=== PATIENT | male | born 1995 | race Caucasian/White ===

== ENCOUNTER 2018-04-27 09:04 | Day surgery (SDC) | payer OTHER ==
[2018-04-27] MEDS: LR 1,000 ML IV ×2 (09:27→11:13)
[2018-04-27] MEDS ORDERED: PROPOFOL 200 MG/20 ML VIAL As Ordered ×2 (09:33→10:01)
[2018-04-27] MEDS ORDERED: ROCURONIUM BROMIDE 50 MG/5 ML VIAL As Ordered (09:33)
[2018-04-27] MEDS ORDERED: MIDAZOLAM INJ 2 MG/2 ML VIAL (J2250) As Ordered (09:33)
[2018-04-27] MEDS ORDERED: LIDOCAINE 2% INJ 100 MG/5 ML SDV (FOR ANES.) As Ordered (09:33)
[2018-04-27] MEDS ORDERED: fentaNYL 250 MCG/5 ML INJECTION (J3010) As Ordered (09:33)
[2018-04-27] MEDS: PHENYLEPHRINE 0.5% NASAL SPRAY 15 ML As Ordered (10:05)
[2018-04-27] MEDS: AMPICILLIN SOD/SULBACTAM SOD 3 GM in D5W MINI-BAG PLUS 100 ML IV (10:14)
[2018-04-27] MEDS: dexameTHASONE 4 MG/ML 1ML VIAL (J1100) IV (10:20)
[2018-04-27] MEDS: LIDOCAINE 2% W/ EPINEPHRINE 1.7 ML DENTAL INJ As Ordered (10:20)
[2018-04-27] MEDS ORDERED: GLYCOPYRROLATE INJ 0.2 MG/ML 2 ML VIAL As Ordered ×2 (10:26)
[2018-04-27] MEDS ORDERED: ONDANSETRON 4MG/2ML VIAL (J2405) As Ordered (10:26)
[2018-04-27] MEDS: fentaNYL 100 MCG/2 ML INJECTION (J3010) IV ×3 (11:28→11:41)
[2018-04-27] MEDS ORDERED: fentaNYL 100 MCG/2 ML INJECTION (J3010) As Ordered (11:28)
[2018-04-27] MEDS ORDERED: ONDANSETRON 4MG/2ML VIAL (J2405) IV (11:30)
[2018-04-27] MEDS ORDERED: NORCO, ANEXSIA 5/325MG TABLET (HYDROcodone/ACETAMINOPHEN) As Ordered (12:45)
[2018-04-27] MEDS: NORCO, ANEXSIA 5/325MG TABLET (HYDROcodone/ACETAMINOPHEN) PO (12:50)
== END 2018-04-27 13:30 | disposition home or self-care (01) ==
LOC: M SDC 09:04
DX: K02.9 Dental caries, unspecified (principal); B18.2 Chronic viral hepatitis C; F17.210 Nicotine dependence, cigarettes, uncomplicated; F12.10 Cannabis abuse, uncomplicated
CPT/HCPCS: D7210

== ENCOUNTER 2022-09-11 18:09 | Emergency (ER) | payer OTHER ==
[~2022-09-11] VITALS: Ht 177.8 cm; Wt 86.4 kg
[~2022-09-11 18:09] MED LIST: BUPR8SUB PO; TRAZ150T90 PO
[2022-09-11 18:21] VITALS: BP 120/77
[2022-09-11] MEDS ORDERED: GABA800T4 (18:32)
[2022-09-11] MEDS ORDERED: BUPR8SUB (18:32)
[2022-09-11] MEDS ORDERED: QUET50TA4 (18:32)
[2022-09-11] MEDS ORDERED: QUET100T2 (18:32)
== END 2022-09-11 19:09 | disposition left against medical advice (07) ==
LOC: M ED 18:09
DX: Z53.21 Procedure and treatment not carried out due to patient leaving prior to being seen by health care provider (principal)